=== PATIENT | female | born 1995 | race African-American/Black ===

== ENCOUNTER 2025-01-31 14:09 | Emergency (ER) | payer SELFPAY ==
--- NOTE | ~2025-01-31 | XR_ITS ---
EXAMINATION: XR forearm LT 2V, 01/31/2025 15:11 LOGISTICS ANALYTICS MANAGER HISTORY: LT forearm, multiple dog bites today, entire forearm COMPARISON: No comparisons available. Findings: No acute fracture or malalignment. No significant degenerative changes. Soft tissues unremarkable. Impression: No acute fracture or malalignment. Reviewed, dictated and finalized at location P. STICS ANALYTICS MANAGER Impression: No acute fracture or malalignment.
--- NOTE | ~2025-01-31 | XR_ITS ---
EXAMINATION: XR femur LT min 2V, 01/31/2025 15:11 TELEPHONY ENGINEER HISTORY: dog bite to distal LT femur today COMPARISON: No comparisons available. Findings: No acute fracture or malalignment. No significant degenerative changes. Soft tissues unremarkable. Impression: No acute fracture or malalignment. Reviewed, dictated and finalized at location P. PHONY ENGINEER Impression: No acute fracture or malalignment.
[2025-01-31 14:25] VITALS: BP 128/85; PULSE 103; RESP 18; TEMP 36.9; O2SAT 97
[2025-01-31] MEDS: TETANUS,DIPHTHERIA,AC PERTUSSIS ADULT (0.5 ML) BOOSTRIX IM (15:01)
[2025-01-31] MEDS: LIDO 1%/EPINEPHRINE 1:100,000 20 ML VIAL 4 ML INFILTRATE (15:40)
--- NOTE | 2025-01-31 16:49 | ED.WOUNDLAC ---
HPI - Wound/Laceration General Chief Complaint: Wound/Laceration Stated Complaint: Dog Bite Time Seen by Provider: 01/31/25 14:30 Source: patient and RN notes reviewed Mode of arrival: ambulatory Limitations: no limitations History of Present Illness HPI narrative: 29-year-old female presents [facility] complaining of dog bite to left forearm and left eye. Patient has had approximately 1 hour ago she broke up a dog fight at her family's house when 1 of the dogs bit her in the left forearm and on to the left thigh. Patient reports 6 wounds were left forearm in 1 wound to her left eye. Patient tetanus is not up-to-date. Patient says the x-ray views were up-to-date. Patient denies any other injuries, patient denies any numbness or tingling. This is bleeding is controlled prior to arrival. Related Data Allergies Allergy/AdvReac Type Severity Reaction Status Date / Time No Known Drug Allergies Allergy none Verified 01/31/25 14:30 Review of Systems Review of Systems: CONSTITUTIONAL: Denies fever, chills, or sweats. EYES: Denies visual changes, redness, or discharge. ENT: Denies rhinorrhea, congestion, sore throat, or otalgia. CARDIOVASCULAR: Denies chest pain, palpitations, or edema. RESPIRATORY: Denies cough or dyspnea. GASTROINTESTINAL: Denies abdominal pain, nausea, vomiting, or diarrhea. GENITOURINARY: Denies dysuria or hematuria. SKIN: Denies rash or itching. Positive for animal bite. MUSCULOSKELETAL: Denies back pain, joint pain, or myalgia. NEUROLOGIC: Denies headache, numbness, or weakness. PSYCHIATRIC: Denies anxiety or depression. All other systems reviewed are negative, except as documented in HPI. PMFSH Comments At the time of my signature, I reviewed and agree with the nursing past medical, surgical, social, and family history. There is no relevant family history pertinent to the patient complaint. Exam Narrative: GENERAL: This is a well-nourished, well-developed adult, in no apparent distress. They are non ill-appearing, nontoxic appearing. HEAD: normocephalic, atraumatic. EYES: Sclera clear/white. Conjunctiva normal. Vision is grossly intact. Extraocular movements intact EARS: External ears normalHearing grossly intact. NOSE: External nose normal THROAT: Mucous membranes moist, NECK: Neck supple, CARDIOVASCULAR: Regular rate and rhythm RESPIRATORY: Respiratory rate normal, respiratory effort nonlabored, no respiratory distress SKIN: Left forearm: Multiple puncture wounds scattered throughout the mid to distal anterior and posterior the forearm. There is a large laceration to the mid anterior forearm measuring approximately 3 cm long. It is on approximated. Fascia intact. No tendons or bones visualized. No bony tenderness. Radial pulse 2 +and palpable. Sensation intact. Business Excellence Manager strength 5/5. Patient make a fist, thumbs-up sign, stop sign, okay sign. Radial, ulnar, median nerve distribution intact. Capillary refill less than 2 seconds. Neurovascular status intact distally. Left thigh: 1 puncture wound present to the distal end of the femur. No bony tenderness no obvious deformity, bruising of redness, swelling. Normal range of motion. Capillary refill less than 2 seconds. Sensation intact. Neurovascular status intact distal injury. NEURO: awake, alert, and oriented to person, place and time. There were no obvious focal neurologic abnormalities. EXTREMITIES: No joint tenderness, effusion, or edema noted. Course Course Emergency Course: Portions of this record may have been created with voice recognition software Level of Care: Express Care Visit Vital Signs Vital signs: Vital Signs Temperature 98.4 F 01/31/25 14:25 Pulse Rate 103 H 01/31/25 14:25 Respiratory Rate 18 01/31/25 14:25 Blood Pressure 128/85 01/31/25 14:25 Pulse Oximetry 97 01/31/25 14:25 Oxygen Delivery Room Air 01/31/25 14:25 Temperature 98.4 F 01/31/25 14:25 Pulse Rate 103 H 01/31/25 14:25 Respiratory Rate 18 01/31/25 14:25 Blood Pressure 128/85 01/31/25 14:25 Pulse Oximetry 97 01/31/25 14:25 Oxygen Delivery Room Air 01/31/25 14:25 Reviewed Procedures Laceration Laceration 1: Date: 01/31/25 Time: 15:45 Site: upper extremity Side (If applicable): left (Mid anterior Forearm) Size (cm): 3 Description: linear Depth: simple, single layer Local Anesthetic: lidocaine 1% and with epi Amount of anesthesia used (mL): 3 Pre-repair: wound explored, irrigated extensively and wound margins revised ====== Skin Level ====== Skin layer closed with: nylon Size (cm): 4-0 Number of sutures: 3 Technique: simple, interrupted (Loosely closed) ====== Subcutaneous Layer ====== ====== Muscle Layer ====== ====== Tendon Layer ====== Dressing: Antibiotic ointment, Band-Aid MDM - Wound/Laceration MDM Narrative Medical decision making narrative: X-ray of left forearm and left femur negative for any fractures or acute findings, no evidence of retained foreign body or dog tooth. Patient's tetanus is updated today. No concern for rabies. Laceration is unapproximated, it was loosely closed with sutures to allow for drainage. Wound was extensively irrigated includes prior to closure. All puncture wounds were extensively cleansed and irrigated by nursing staff. All wounds were applied with triple antibiotic ointment along with nonadherent dressings. Will send patient home prophylactically on Augmentin. Neurovascular status intact distal to injury is normal function of left arm and left lower extremity. Strict ER precautions discussed with patient. Discussed physical exam findings. Advised supportive measures and signs/symptoms to go to the ER. Pt is appropriate for outpt treatment and f/u. Differential Diagnosis Differential diagnosis: Likely laceration, abrasion, avulsion of skin and other (Dog bite, fracture, retained foreign body) Critical Care Time Critical Care Time Critical Care Time: No Discharge Plan Discharge Clinical Impression: Dog bite of extremity Patient Disposition: Home Condition: Stable Instructions: Antibiotic Form, Animal Bite (ED) Additional Instructions: The x-ray of your left forearm left femur negative for any fractures or acute findings. Your sutures need to be removed in 7-10 days. ?Wear the dressing that has been applied for the first 24 hours to allow a scab to start forming. ?After this, you may remove and wash as normal with soap and water. ?Do NOT wash with peroxide or alcohol. ?Apply bacitracin antibiotic ointment to the wounds daily. Keep the wounds dry and covered, change the dressing daily apply nonadherent dressing such as a Band-Aid to the wounds. Avoid dirty water to the wounds have healed completely. Take Augmentin as directed. Take tylenol or ibuprofen as needed for pain or fevers. ?Follow up with your PCP 3-5 days for wound recheck. Look for any signs of infection such as redness, swelling, extremities hot to touch, fevers, eczema chills increased pain, or green/yellow drainage. ?Please go to the ER with any signs of infections, or any serious concerns. Patient Language: Italian Prescriptions: New amoxicillin-pot clavulanate 875-125 mg tablet 1 tablet PO Q12H 5 Days Qty: 10 0RF Follow-up/Referrals: PHYSICIAN,MARKETING DIRECTOR [Primary Care Provider, Internal Medicine] Time of Disposition: 16:05
== END 2025-01-31 16:17 | disposition home or self-care (01) ==
DX: S51.832A Puncture wound without foreign body of left forearm, initial encounter (principal); S71.132A Puncture wound without foreign body, left thigh, initial encounter; W54.0XXA Bitten by dog, initial encounter; Z23 Encounter for immunization
CPT/HCPCS: 73090; 73552; 90471; 90715; 99203; G0463; J2004